=== PATIENT | male | born 1960 | race American Indian/Alaskan Native ===

== ENCOUNTER 2018-12-12 16:47 | Emergency (ER) | payer MEDICARE ==
[2018-12-12 16:54] VITALS: BP 163/88
--- NOTE | 2018-12-12 17:22 | Event Note ---
ED Screening Note Date of service: 12/12/18 Time: 17:20 ED Screening Note: 58 y o male presents with prod cough, fever and chills This initial assessment/diagnostic orders/clinical plan/treatment(s) is/are subject to change based on patients health status, clinical progression and re-assessment by fellow clinical providers in the ED. Further treatment and workup at subsequent clinical providers discretion. Patient/guardian urged not to elope from the ED as their condition may be serious if not clinically assessed and managed. Initial orders include: cxr
--- NOTE | 2018-12-12 17:55 | XRay Report ---
CHEST 2 VIEWS 1733 INDICATION / CLINICAL INFORMATION: Upper Respiratory Infection, LOWER RIGHT CHEST PAIN COMPARISON: None available. FINDINGS: SUPPORT DEVICES: None. HEART / MEDIASTINUM: No significant abnormality. LUNGS / PLEURA: No significant pulmonary or pleural abnormality. No pneumothorax. ADDITIONAL FINDINGS: No significant additional findings. IMPRESSION: No significant acute abnormality Signer Name: Fermin Christiansen MD Signed: 12/12/2018 5:50 PM Workstation Name: [id number]
--- NOTE | 2018-12-12 19:50 | Emergency Department Report ---
ED General Adult HPI - General Chief complaint: Upper Respiratory Infection Stated complaint: COLD SX/FEVER/CHILLS Time Seen by Provider: 12/12/18 17:20 Source: patient Mode of arrival: Ambulatory Limitations: No Limitations - History of Present Illness Initial comments: Patient presents to the emergency department with a chief complaint of right- sided rib pain that started 3 days ago. Patient denies any injury or any new activity. The patient does have a history of seizures and Allie had a seizure today but the patient's states that he has not how one in the last week prior to today. Patient denies fever or rash in the area of the rib pain -: Sudden Severity scale (0 -10): 5 Quality: aching Consistency: constant Improves with: rest Worsens with: movement Associated Symptoms: denies other symptoms Treatments Prior to Arrival: none - Related Data Home Medications Medication Instructions Recorded Confirmed Last Taken Phenytoin [Dilantin] 100 mg PO DAILY 03/22/13 03/22/13 Unknown Previous Rx's Medication Instructions Recorded Last Taken Type Naproxen [Naprosyn] 500 mg PO BID PRN #20 tablet 12/12/18 Unknown Rx Allergies Allergy/AdvReac Type Severity Reaction Status Date / Time No Known Allergies Allergy Verified 03/22/13 12:15 ED Review of Systems ROS: Stated complaint: COLD SX/FEVER/CHILLS Other details as noted in HPI Comment: Unobtainable due to pts medical conditions Constitutional: denies: chills, fever Eyes: denies: eye pain, eye discharge, vision change ENT: denies: ear pain, throat pain Respiratory: denies: cough, shortness of breath, wheezing Cardiovascular: denies: chest pain, palpitations Endocrine: no symptoms reported Gastrointestinal: denies: abdominal pain, nausea, diarrhea Genitourinary: denies: urgency, dysuria Musculoskeletal: denies: back pain, joint swelling, arthralgia Skin: denies: rash, lesions Neurological: denies: headache, weakness, paresthesias Psychiatric: denies: anxiety, depression Hematological/Lymphatic: denies: easy bleeding, easy bruising ED Past Medical Hx - Past Medical History Hx Seizures: Yes - Social History Smoking Status: Never Smoker Substance Use Type: None - Medications Home Medications: Home Medications Medication Instructions Recorded Confirmed Last Taken Type Phenytoin [Dilantin] 100 mg PO DAILY 03/22/13 03/22/13 Unknown History Naproxen [Naprosyn] 500 mg PO BID PRN #20 tablet 12/12/18 Unknown Rx ED Physical Exam - General Limitations: No Limitations General appearance: alert, in no apparent distress - Head Head exam: Present: atraumatic, normocephalic - Eye Eye exam: Present: normal appearance, PERRL, EOMI - ENT ENT exam: Present: mucous membranes moist - Neck Neck exam: Present: normal inspection - Respiratory Respiratory exam: Present: normal lung sounds bilaterally, other (there is tenderness to palpation on the right side of ribs 4 through 6 there is no rash present over the area of the patient's pain. The pain is not in a dermatomal pattern.). Absent: respiratory distress - Cardiovascular Cardiovascular Exam: Present: regular rate, normal rhythm. Absent: systolic murmur, diastolic murmur, rubs, gallop - GI/Abdominal GI/Abdominal exam: Present: soft, normal bowel sounds. Absent: distended, tenderness - Rectal Rectal exam: Present: deferred - Extremities Exam Extremities exam: Present: normal inspection - Back Exam Back exam: Present: normal inspection - Neurological Exam Neurological exam: Present: alert, oriented X3, CN II-XII intact. Absent: motor sensory deficit - Psychiatric Psychiatric exam: Present: normal affect, normal mood - Skin Skin exam: Present: warm, dry, intact, normal color. Absent: rash ED Course Vital Signs 12/12/18 16:53 Temperature 99.0 F Pulse Rate 73 Respiratory 20 Rate Blood Pressure 163/88 [Left] O2 Sat by Pulse 96 Oximetry ED Medical Decision Making - Radiology Data Radiology results: report reviewed - Medical Decision Making Results discussed with patient Critical care attestation.: If time is entered above; I have spent that time in minutes in the direct care of this critically ill patient, excluding procedure time. ED Disposition Clinical Impression: Rib pain on right side Disposition: TO HOME OR SELFCARE Is pt being admited?: No Does the pt Need Aspirin: No Condition: Stable Additional Instructions: return if worse Referrals: NATALIIA DENTON MD [Primary Care Provider] - 3-5 Days [facility] [Provider Group] - 3-5 Days [facility] [Provider Group] - 3-5 Days Time of Disposition: 19:49
== END 2018-12-12 20:00 | disposition home or self-care (01) ==
LOC: ED 16:47
DX: R07.81 Pleurodynia (principal); Z79.899 Other long term (current) drug therapy
CPT/HCPCS: 71046; 99283